=== PATIENT | male | born 1955 | race Caucasian/White ===

== ENCOUNTER 2016-11-11 05:13 | Inpatient (IN) | payer BC, OTHER ==
[2016-11-01 09:31] LABS: HEMATOCRIT 43.8 % (42.0-52.0); HEMOGLOBIN 14.8 gm/dL (14.0-18.0); MCH 29.4 pg (26.0-34.0); MCHC 33.8 g/dL (28.0-37.0); RBC 5.03 mil/uL (4.50-6.00); RDW 14.4 % (10.5-14.5); WBC 6.5 thou/uL (4.0-11.0)
[2016-11-01 09:41] LABS: URINE BILIRUBIN NEGATIVE (Negative); URINE BLOOD TRACE (Negative); URINE COLOR YELLOW; URINE GLUCOSE-RANDOM* NEGATIVE (Negative); URINE KETONES NEGATIVE (Negative); URINE LEUKOCYTES-REFLEX NEGATIVE (Negative); URINE PROTEIN (DIPSTICK) NEGATIVE (Negative); URINE SPECIFIC GRAVITY 1.025 (1.003-1.035); URINE UROBILINOGEN 0.2 E.U./dl (0.2-1.0)
[2016-11-01 09:43] LABS: PROTIME 10.7 Seconds (9.3-11.4)
[2016-11-01 09:44] LABS: ALBUMIN 3.6 g/dL (3.4-5.0); CALCIUM 8.9 mg/dL (8.5-10.1); CREATININE 1.2 mg/dL (0.6-1.3); POTASSIUM 4.1 mmol/L (3.5-5.1)
[2016-11-11] VITALS (8 sets, daily range): BP systolic 108–130; BP diastolic 65–79
[~2016-11-11] VITALS: Ht 182.9 cm; Wt 110.7 kg
--- NOTE | ~2016-11-11 | O ---
[facility] [place] [address] OPERATIVE REPORT Name: NIKOLAS VASQUEZ Room #: 536-P ADM IN M.R.#: [id number] Admission: 11/11/16 Attend Phys: Jabier Marrufo MD Discharge: Date of : 51 Report #: [id number] THIS REPORT FOR: //name// CC: Jorge Luis Cantrell [facility] DATE OF SERVICE: 11/11/2016 PREOPERATIVE DIAGNOSIS: End-stage degenerative arthritis, left hip. POSTOPERATIVE DIAGNOSIS: End-stage degenerative arthritis, left hip. PROCEDURE: Left total hip arthroplasty. HISTORY: This heavy, 61-year-old gentleman has had problems with progressive degenerative arthritis involving both hips. He underwent right total hip arthroplasty several years ago with good result. He now has progressive left hip pain and clinical and radiographic findings consistent with end-stage degenerative arthritis. He has tried more conservative measures without benefit and has elected to go ahead with left total hip arthroplasty at this time. DESCRIPTION OF PROCEDURE: The patient was taken to the operating room, where he was placed under general anesthesia. Prophylactic intravenous antibiotics were administered. The patient was placed in the right lateral decubitus position. The left hip and thigh were meticulously prepped and draped. A slightly curving posterolateral skin incision was made, centered over the greater trochanter. This was carried through fascia and gluteus was spread bluntly, exposing the posterior aspect of the hip joint. The short external rotators and capsule were taken down and tagged with several #1 Tevdek sutures. The hip was dislocated and femoral neck osteotomy was performed, rather marked degenerative change on both the femoral head and the acetabulum was noted. Attention was first directed to the femoral canal. The [employer] Secur-Fit stem system was utilized. The canal was gradually opened with reamers and hand broaches and a size 10 press-fit stem seemed to fit nicely. The calcar was trimmed down to an appropriate level. The trial stem was removed and attention directed to the acetabulum. Good exposure was established, and the acetabulum was sequentially reamed with spherical reamers, gradually advancing to a size 55 mm reamer. A 56 mm fenestrated Tritanium acetabular cup was then inserted, placing this in alignment with his true acetabulum, positioning this in about 45 degrees off of vertical at about 20 degrees of anteversion. It was impacted into position and seemed to seat quite nicely with good stability. In addition, 3 cancellous screws were placed through the apex of the shell, engaging sound periacetabular bone adding to stability. A 36 mm diameter polyethylene shell was then inserted. This was placed with the 10-degree posterior kumar elevated at about the 10 o'clock posterior position. This was snapped into place and seated [address] [address] OPERATIVE REPORT Name: NIKOLAS VASQUEZ Room #: 536-P [facility] IN M.R.#: [id number] Admission: 11/11/16 Attend Phys: Jabier Marrufo MD Discharge: Date of : 51 Report #: [id number] nicely and appeared to be secure. A trial reduction was then performed, and the size 10 press-fit stem combined with a +2.5 mm neck length seemed to fit quite nicely. This resulted in good range of motion and stability. The trial component was removed and the permanent [place] Secur-Fit size 10 stem was then inserted, positioning this in about 15-20 degrees of anteversion. A ceramic head was selected using a 36 mm diameter head with a +2.5 mm neck length. This was gently impacted on to the Leonard taper neck. It seated nicely and appeared to be secure. The hip was reduced and alignment, range of motion, stability and leg length were assessed and felt to be satisfactory. The wound was copiously irrigated. Good hemostasis was established. The capsule and short external rotators were repaired using the #1 Tevdek suture bringing these back to small drill holes and the bone of the greater trochanter. This resulted in good additional hip stability. A single Hemovac was then left the wound exiting through a separate stab incision. The fascia was closed with multiple #1 Vicryl sutures. The deeper subcutaneous tissues and subcutaneous were closed with 0 Monocryl. The skin was closed with skin vilma. A sterile dressing was applied. The patient was awakened and returned to the recovery room in good condition. <ELECTRONICALLY SIGNED> By: Jabier Marrufo MD 11/12/16 0743 [id number] Jabier Marrufo MD /nt
--- NOTE | ~2016-11-11 | EKG ---
[address] [place] [address] ELECTROCARDIOGRAM REPORT Name: NIKOLAS VASQUEZ Room #: 536- ADM IN M.R.#: [id number] Admission: 11/11/16 Attend Phys: Jabier Marrufo MD Discharge: Date of : 51 Report #: [id number] THIS REPORT FOR: //name// [facility] Test Date: 2016-11-12 Test Time: 09:39:16 Pat Name: NIKOLAS VASQUEZ Department: Room: 536 P Gender: M Analytical Lab Analyst: John URIBE : 1955 Requested By: Kori Tirado Order Number: [id number] MD: Quang Strickland Measurements Intervals Erin Rate: 89 P: 43 OR: 182 QRS: 15 QRSD: 115 T: 228 QT: 352 QTc: 429 Interpretive Statements Sinus rhythm Probable left atrial enlargement Nonspecific intraventricular conduction delay Inferior infarct, age indeterminate Nonspecific ST and T wave abnormality No previous ECG available for comparison Electronically Signed On 11-13-2016 7:42:12 CDT by Quang Strickland [email or web address] <ELECTRONICALLY SIGNED> By: Quang Strickland MD, [facility] 11/13/16 0742 8 Quang Strickland MD, [facility] /EPI
--- NOTE | ~2016-11-11 | D ---
[facility] [place] [address] DISCHARGE SUMMARY Name: NIKOLAS VASQUEZ Room #: 536-P ADM IN M.R.#: [id number] Admission: 11/11/16 Attend Phys: Jabier Marrufo MD Discharge: Date of : 51 Report #: [id number] THIS REPORT FOR: //name// CC: Jorge Luis Mojica DATE OF SERVICE: 11/14/2016 FINAL DIAGNOSIS: End-stage degenerative arthritis, left hip. OPERATION PROCEDURE: Left total hip arthroplasty. HISTORY: This heavy, but active 61-year-old gentleman presents with progressive arthritis in multiple joints. He had good result with right total hip arthroplasty in the past. He is readmitted for left total hip arthroplasty at this time. HOSPITAL COURSE: The patient was admitted and taken to the operating room on 11/11/2016 and underwent successful left total hip arthroplasty. He tolerated this well. Postoperatively, his course was largely unremarkable. The wound appears to be healing nicely. There is no evidence of infection. He has made excellent progress with physical therapy and is fully independent with ambulation. He is full weightbearing with minimal discomfort. The wound looks good. He is back on his routine medications. He seems safe and ready for discharge on 11/14/2016. He has been seen by Dr. Azar and Dr. Mojica with regard to medical and cardiac issues. We will continue on Xarelto 10 mg for the coming two weeks and he will resume Plavix and aspirin whenever Dr. Mojica feels appropriate. He will resume his other routine medications, which include Lipitor 40 mg daily, digoxin 0.125 mg daily, atenolol 50 mg daily and hydrocodone 10/325 one q. 4-6 hours p.r.n. for pain. He will probably have some home visiting therapy for the coming week and then moved to outpatient therapy. I have asked him to call if there should be any problems or questions. We will otherwise plan to see him back in my office in 2 weeks for followup and suture removal. By: [id number] Jabier Marrufo MD /nt
[~2016-11-11 05:13] MED LIST: ASPIRIN81 M2 PO; ATENOLOL 50MG T50 M1 PO; ATORVASTATIN CA40 MG PO; BYSTOLIC 5 MG5 M1 PO; FLOMAX0.4 MG PO; HYDROCODONE-AP1 EAC6 PO; LANOXIN 0.120.125 M1 PO; LISINOPRIL5 MG PO; MOBIC15 MG PO; MOVE FREE JOIN1 EACH PO; PLAVIX 75 MG TA75 M1 PO
[2016-11-12 03:08] VITALS: BP 117/64
[2016-11-12 05:57] LABS: HEMATOCRIT 41.4 % (42.0-52.0); HEMOGLOBIN 13.8 gm/dL (14.0-18.0); MCH 29.1 pg (26.0-34.0); MCHC 33.3 g/dL (28.0-37.0); MCV 87.2 fL (80.0-100.0); RBC 4.74 mil/uL (4.50-6.00); RDW 14.1 % (10.5-14.5); WBC 10.7 thou/uL (4.0-11.0)
[2016-11-12 15:35] VITALS: BP 109/62
[2016-11-12 20:00] VITALS: BP 103/57
[2016-11-13] VITALS: BP 109/53
[2016-11-13 04:00] VITALS: BP 110/61
[2016-11-13 05:37] LABS: HEMATOCRIT 37.5 % (42.0-52.0); HEMOGLOBIN 12.5 gm/dL (14.0-18.0); MCH 29.1 pg (26.0-34.0); MCHC 33.3 g/dL (28.0-37.0); MCV 87.2 fL (80.0-100.0); RBC 4.3 mil/uL (4.50-6.00); RDW 14.4 % (10.5-14.5)
[2016-11-13 05:42] LABS: CALCIUM 8.6 mg/dL (8.5-10.1); CREATININE 1.5 mg/dL (0.6-1.3); POTASSIUM 3.9 mmol/L (3.5-5.1)
[2016-11-13 07:15] VITALS: BP 105/59
[2016-11-13 16:23] VITALS: BP 112/62
[2016-11-13 20:00] VITALS: BP 101/63
[2016-11-14 04:00] VITALS: BP 112/58
[2016-11-14 05:18] LABS: HEMATOCRIT 34.6 % (42.0-52.0); HEMOGLOBIN 11.8 gm/dL (14.0-18.0); MCH 29.6 pg (26.0-34.0); MCV 87.1 fL (80.0-100.0); RBC 3.98 mil/uL (4.50-6.00); RDW 14.1 % (10.5-14.5); WBC 8.5 thou/uL (4.0-11.0)
[2016-11-14 07:40] VITALS: BP 120/59
[2016-11-14 12:48] VITALS: BP 120/59
[2016-11-14] MEDS ORDERED: XARELTO10 MG PO (12:56)
[2016-11-14 15:52] VITALS: BP 120/59
== END 2016-11-14 13:30 | disposition home health service (06) | DRG 470 ==
LOC: 5S 05:13 → TBA 05:13 → PRE 07:39 → 5S 13:20
PROVIDERS: Internal Medicine Geriatric Medicine; Orthopaedic Surgery
PROC: 0SRB04A Replacement of Left Hip Joint with Ceramic on Polyethylene Synthetic Substitute, Uncemented, Open Approach (ICD-10-PCS; principal; 2016-11-11)
DX: M16.12 Unilateral primary osteoarthritis, left hip (principal); I25.10 Atherosclerotic heart disease of native coronary artery without angina pectoris; I73.9 Peripheral vascular disease, unspecified; I48.91 Unspecified atrial fibrillation; I10 Essential (primary) hypertension; E78.00 Pure hypercholesterolemia, unspecified; Z96.641 Presence of right artificial hip joint; E66.9 Obesity, unspecified; E78.5 Hyperlipidemia, unspecified; I25.5 Ischemic cardiomyopathy; M47.817 Spondylosis without myelopathy or radiculopathy, lumbosacral region; M17.0 Bilateral primary osteoarthritis of knee; I25.2 Old myocardial infarction; Z79.82 Long term (current) use of aspirin; Z87.891 Personal history of nicotine dependence; Z79.01 Long term (current) use of anticoagulants; Z95.1 Presence of aortocoronary bypass graft; Z79.899 Other long term (current) drug therapy; Z90.49 Acquired absence of other specified parts of digestive tract; Z68.33 Body mass index [BMI] 33.0-33.9, adult; Z95.5 Presence of coronary angioplasty implant and graft
CPT/HCPCS: 10785; 50010; 50101; 50382; 50414; 51412; 51771; 53000; 55388; 56521; 56525; 56527; 62110; 62900; 70005

== ENCOUNTER → 2020-03-09 | Outpatient (CLI) | payer OTHER, MEDICARE ==
[~2020-03-09] MED LIST changes: +XARELTO10 MG PO
== END ==
LOC: SJCVC 10:50
PROVIDERS: ATTEND Internal Medicine Cardiovascular Disease
DX: R94.31 Abnormal electrocardiogram [ECG] [EKG] (principal); I25.5 Ischemic cardiomyopathy; I25.810 Atherosclerosis of coronary artery bypass graft(s) without angina pectoris; E78.00 Pure hypercholesterolemia, unspecified; I10 Essential (primary) hypertension; I77.1 Stricture of artery; J44.9 Chronic obstructive pulmonary disease, unspecified; E11.9 Type 2 diabetes mellitus without complications; E66.9 Obesity, unspecified; Z79.899 Other long term (current) drug therapy; Z82.49 Family history of ischemic heart disease and other diseases of the circulatory system; Z87.891 Personal history of nicotine dependence

== ENCOUNTER → 2020-06-09 | Outpatient (CLI) | payer OTHER, MEDICARE | LOC: SJCVCIMAG 08:08 | PROVIDERS: ATTEND Internal Medicine Cardiovascular Disease | DX: I35.8 Other nonrheumatic aortic valve disorders (principal); I49.3 Ventricular premature depolarization; I77.1 Stricture of artery; I25.10 Atherosclerotic heart disease of native coronary artery without angina pectoris; I73.9 Peripheral vascular disease, unspecified; I25.5 Ischemic cardiomyopathy; I10 Essential (primary) hypertension; Z95.1 Presence of aortocoronary bypass graft; Z95.820 Peripheral vascular angioplasty status with implants and grafts; Z87.891 Personal history of nicotine dependence ==

== ENCOUNTER → 2021-03-26 | Outpatient (CLI) | payer OTHER, MEDICARE | LOC: SJCVC 12:22 | PROVIDERS: ATTEND Internal Medicine Cardiovascular Disease | DX: R94.31 Abnormal electrocardiogram [ECG] [EKG] (principal); I25.810 Atherosclerosis of coronary artery bypass graft(s) without angina pectoris; I10 Essential (primary) hypertension; E78.00 Pure hypercholesterolemia, unspecified; I25.5 Ischemic cardiomyopathy; I73.9 Peripheral vascular disease, unspecified; I77.1 Stricture of artery; I48.0 Paroxysmal atrial fibrillation; J44.9 Chronic obstructive pulmonary disease, unspecified; E66.9 Obesity, unspecified; Z95.1 Presence of aortocoronary bypass graft; Z98.61 Coronary angioplasty status; Z95.820 Peripheral vascular angioplasty status with implants and grafts; Z90.49 Acquired absence of other specified parts of digestive tract; Z79.899 Other long term (current) drug therapy; Z87.891 Personal history of nicotine dependence; Z82.49 Family history of ischemic heart disease and other diseases of the circulatory system ==